=== PATIENT | male | born 1945 | race Caucasian/White ===

== ENCOUNTER 2018-07-14 08:53 | Day surgery (SDC) | payer MEDICARE, OTHER ==
[2018-07-14] MEDS ORDERED: Lactated Ringers 1,000 ML IV SCH (09:00)
--- NOTE | 2018-07-14 10:11 | PCM.HPR ---
H & P Addendum review - H & P Addendum Review Date of Original H & P: 07/09/18 Date Reviewed: 07/14/18 Time Reviewed: 10:11 Patient was Examined: No Changes
[2018-07-14] MEDS ORDERED: Propofol 200 MG/20 ML SDV IV ONE (10:12)
--- NOTE | 2018-07-14 10:40 | PCM.OPNOTE ---
- General Post-Op/Procedure Note Date of Surgery/Procedure: 07/14/18 Operative Procedure(s): Colonoscopy Findings: Sig Tics Pre Op Diagnosis: Colon Screening Post-Op Diagnosis: Sig Tics Anesthesia Technique: MAC Primary Surgeon: Santo Kaur Anesthesia Provider: Shiloh Li Complications: None Condition: Good
[2018-07-14 11:42] VITALS: BP 116/58
--- NOTE | 2018-07-15 06:47 | OR ---
DATE OF OPERATION: 07/14/2018 SURGEON: Santo Kaur MD PREOPERATIVE DIAGNOSIS: Colon screening. POSTOPERATIVE DIAGNOSIS: Sigmoid diverticulosis. PROCEDURE: Colonoscopy. ANESTHESIA: IV sedation. DESCRIPTION OF PROCEDURE: The patient was brought to the procedure room, where he was placed on his left side and IV sedation administered. Digital rectal exam was performed, which was normal. The colonoscope was inserted and advanced to the level of the cecum without difficulty. Cecal position was confirmed by identifying the appendiceal lumen and ileocecal valve. The prep was good and surfaces were well visualized. Upon withdrawing the scope, the ascending, transverse, and descending colons were normal in appearance. The sigmoid colon had multiple diverticula present. Rectum was normal and retroflexion was normal. Air was removed, and the scope withdrawn. The patient tolerated the procedure well and returned to Recovery in a stable condition. No further colon screening is necessary due to the patient's age. /[id number] LEDA/BONITA
== END 2018-07-14 11:32 | disposition home or self-care (01) ==
LOC: FB.SDS 08:53
PROVIDERS: ATTEND Surgery
DX: Z12.11 Encounter for screening for malignant neoplasm of colon (principal); K57.30 Diverticulosis of large intestine without perforation or abscess without bleeding; J44.9 Chronic obstructive pulmonary disease, unspecified; G25.0 Essential tremor; Z87.891 Personal history of nicotine dependence; Z79.51 Long term (current) use of inhaled steroids; Z79.899 Other long term (current) drug therapy; Z88.8 Allergy status to other drugs, medicaments and biological substances; Z88.0 Allergy status to penicillin
CPT/HCPCS: 00811-QZ; J2704; J7120

== ENCOUNTER 2022-08-01 14:59 | Emergency (ER) | payer MEDICARE, OTHER ==
[2022-08-01] MEDS ORDERED: Sodium Phosphate,Monobasic/Sodium Phosphate,Dibasic Enema 133 ML Bottle RECTAL ONE ×2 (15:13→16:21)
[2022-08-01 15:33] LABS: ESTIMATED GFR 78 mL/min (>60)
[2022-08-01] MEDS ORDERED: Sodium Chloride 0.9% 1,000 ML IV ONE (16:22)
[2022-08-01 19:51] VITALS: BP 168/69; PULSE 86
== END 2022-08-01 18:40 | disposition home or self-care (01) ==
LOC: FB.ED 14:59
DX: K59.00 Constipation, unspecified (principal); E86.0 Dehydration; R79.89 Other specified abnormal findings of blood chemistry; J44.9 Chronic obstructive pulmonary disease, unspecified; N40.0 Benign prostatic hyperplasia without lower urinary tract symptoms; Z79.01 Long term (current) use of anticoagulants
CPT/HCPCS: 36415; 74019; 80053; 85025; 86140; 96360; 99284; J7030